=== PATIENT | female | born 1985 | race Two or more races ===

== ENCOUNTER → 2022-09-13 | Outpatient (CLI) | payer OTHER ==
[~2022-09-13] MED LIST: IBUP80TA PO; MAPA500T2 PO; VITAPRTA PO
== END ==
LOC: M CARPUL 11:36
PROVIDERS: ATTEND Nurse Practitioner Adult Health
DX: R01.1 Cardiac murmur, unspecified (principal)

== ENCOUNTER → 2022-10-21 | Outpatient (CLI) | payer OTHER | LOC: M WHC 15:23 | PROVIDERS: ATTEND Nurse Practitioner Adult Health | DX: N64.4 Mastodynia (principal) ==

== ENCOUNTER 2022-11-11 12:38 | Emergency (ER) | payer OTHER ==
[~2022-11-11] VITALS: Ht 154.9 cm; Wt 59.4 kg
[2022-11-11 14:11] VITALS: BP 117/70
== END 2022-11-11 14:13 | disposition home or self-care (01) ==
LOC: M ED 12:38
DX: S09.90XA Unspecified injury of head, initial encounter (principal); W22.09XA Striking against other stationary object, initial encounter; Y92.002 Bathroom of unspecified non-institutional (private) residence as the place of occurrence of the external cause; Y93.89 Activity, other specified; Y99.8 Other external cause status; F41.9 Anxiety disorder, unspecified

== ENCOUNTER 2023-03-08 02:15 | Emergency (ER) | payer OTHER ==
[~2023-03-08] VITALS: Ht 154.9 cm; Wt 57.7 kg
[2023-03-08 06:27] LABS: URINE PREG TEST NEGATIVE (NEGATIVE)
[2023-03-08 07:04] LABS: BASO # 0.1 10^3/uL (0.0-0.2); BASO % 0.6 % (0.0-1.0); EOS # 0.1 10^3/uL (0.0-0.5); EOS % 1.1 % (0.0-3.0); HEMATOCRIT 37.6 % (36.0-47.0); HEMOGLOBIN 12.8 g/dl (12.0-15.5); LYMPH % 19.9 % (24.0-44.0); MEAN CORPUSCULAR HEMOGLOBIN 29.9 pg (27.0-33.0); MEAN CORPUSCULAR VOLUME 87.9 fl (80.0-96.0); MONO # 0.5 10^3/uL (0.0-0.8); MONO % 4.8 % (2.0-8.0); NEUTROPHILS # 7.4 10^3/uL (1.5-8.5); NEUTROPHILS % 73.3 % (36.0-66.0); PLATELET COUNT, AUTOMATED 311 10^3/uL (150-450); RED BLOOD COUNT 4.28 10^6/uL (4.00-5.40); WHITE BLOOD COUNT 10.1 10^3/uL (4.0-10.0)
[2023-03-08 07:24] LABS: BLOOD UREA NITROGEN 13 MG/DL (9-23); CALCIUM LEVEL 9.2 MG/DL (8.5-10.1); CARBON DIOXIDE LEVEL 25 MMOL/L (20-31); CHLORIDE LEVEL 105 MMOL/L (98-107); CREATININE FOR GFR 0.59 MG/DL (0.55-1.30); GLOMERULAR FILTRATION RATE > 60.0 (>60); GLUCOSE, FASTING 98 MG/DL (60-100); POTASSIUM SERUM 3.9 MMOL/L (3.5-5.1); SODIUM LEVEL 138 MMOL/L (136-145)
[2023-03-08 08:30] VITALS: BP 122/69; TEMP 98.4; O2SAT 97
== END 2023-03-08 08:35 | disposition home or self-care (01) ==
LOC: M ED 02:15
DX: K59.00 Constipation, unspecified (principal); R10.32 Left lower quadrant pain

== ENCOUNTER → 2023-06-10 | Outpatient (CLI) | payer OTHER | LOC: M WHC 12:20 | PROVIDERS: ATTEND Nurse Practitioner Adult Health | DX: R92.8 Other abnormal and inconclusive findings on diagnostic imaging of breast (principal) ==

== ENCOUNTER → 2023-12-23 | Outpatient (CLI) | payer OTHER | LOC: M WHC 12:58 | PROVIDERS: ATTEND Nurse Practitioner Adult Health | DX: N60.01 Solitary cyst of right breast (principal) ==

== ENCOUNTER → 2024-06-02 | Outpatient (CLI) | payer OTHER | LOC: M WHC 08:49 | PROVIDERS: ATTEND Nurse Practitioner Adult Health | DX: N60.01 Solitary cyst of right breast (principal) ==

== ENCOUNTER → 2024-06-25 | Outpatient (CLI) | payer OTHER ==
[2024-06-25 15:51] LABS: FREE T4 1.07 NG/DL (0.89-1.76); THYROID STIMULATING HORMONE 2.245 uIU/ML (0.55-4.78)
[2024-06-25 15:52] LABS: ESTRADIOL 221.8 PG/ML; FOLLICLE STIMULATING HORMONE 2.7 mIU/ML; LUTEINIZING HORMONE 6.9 mIU/ML
== END ==
LOC: M PLALAB 11:14
PROVIDERS: ATTEND Nurse Practitioner Adult Health
DX: K59.00 Constipation, unspecified (principal)